=== PATIENT | male | born 1990 | race American Indian/Alaskan Native ===

== ENCOUNTER 2016-06-11 12:29 | Emergency (ER) | payer SELFPAY ==
[2016-06-11 12:48] VITALS: BP 134/68
[2016-06-11] MEDS ORDERED: FLEXERIL PO ONE (15:11)
[2016-06-11] MEDS ORDERED: MOTRIN PO ONE (15:11)
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
== END 2016-06-11 15:41 | disposition home or self-care (01) ==
LOC: ED 12:29
DX: S16.1XXA Strain of muscle, fascia and tendon at neck level, initial encounter (principal); M62.830 Muscle spasm of back; F17.200 Nicotine dependence, unspecified, uncomplicated; F12.10 Cannabis abuse, uncomplicated; V49.59XA Passenger injured in collision with other motor vehicles in traffic accident, initial encounter; Y93.9 Activity, unspecified; Y92.9 Unspecified place or not applicable; Y99.9 Unspecified external cause status
CPT/HCPCS: 99282

== ENCOUNTER 2019-12-24 14:59 | Emergency (ER) | payer SELFPAY ==
--- NOTE | 2019-12-24 17:11 | Cat Scan Report ---
CT head/brain wo con INDICATION: headache. TECHNIQUE: Routine CT head without contrast. All CT scans at this location are performed using CT dos e reduction for ALARA by means of automated exposure control. COMPARISON: None. FINDINGS: BRAIN / INTRACRANIAL CONTENTS: No acute hemorrhage, mass effect, midline shift, or hydrocephalus. No appreciable acute large territorial or lacunar infarct. No chronic infarct or focal atrophy. Normal b rain volume and ventricular/sulcal size for age. ORBITS: No significant abnormality of visualized orbits. SINUSES / MASTOIDS: No significant abnormality of visualized sinuses and mastoid air cells. ADDITIONAL FINDINGS: None. IMPRESSION: 1. Negative head CT. Signer Name: Omar Hernandez MD Signed: 12/24/2019 5:07 PM Workstation Name: [id number]
[2019-12-25 04:10] VITALS: BP 154/86
--- NOTE | 2019-12-25 04:10 | Emergency Department Report ---
ED Headache HPI - General Chief Complaint: Headache Stated Complaint: LT SIDE HEADACHE - History of Present Illness Initial Comments: Patient is a 29-year-old -[place] male with a history of hypertension and noncompliant on his medication, and morbid obesity presents to the ED with complaint of acute onset persistent left parietal headache with elevated blood pressure for the last 6 hours. Patient states that he woke up with severe pain and suspected that his blood pressure which has not been well controlled in over 1 year was the cause of his headache. Patient states that he then decided come to the ED for evaluation and to obtain prescription for blood pressure medication that he states had been prescribed initially in the ED but he did not follow-up with any primary care physician outpatient for his blood pressure control. Patient denies chest pain, shortness of breath, dizziness, syncope, nausea, vomiting, change in vision, change in speech, upper and lower extremity weaknesses bilaterally, cough, nasal and sinus congestion or traumatic injury and nosebleed or diaphoresis. Timing/Duration: 4-6 hours, waxing and waning Quality: severe, achy, pressure Head Injury Location: global Recent Head Trauma: no recent headache/trauma Modifying Factors: improves with: other (Noncompliant with BP medications) Associated Symptoms: denies symptoms. denies: confusion, fatigue, facial pain, fever/chills, flushing, loss of consciousness, nausea/vomiting, nasal congestion, nasal drainage, numbness in legs/feet, rash, seizures, sinus infection, stiff neck, vision changes, weakness Allergies/Adverse Reactions: Allergies No Known Allergies Allergy (Verified 06/15/14 16:25) Home Medications: Ambulatory Orders Acetaminophen/Codeine [Tylenol #3] 1 tab PO Q6H PRN #12 tab 06/11/16 Ibuprofen [Motrin] 600 mg PO Q8H PRN #15 tablet 06/11/16 methOCARBAMOL [Robaxin TAB] 500 mg PO Q6H PRN #15 tablet 06/11/16 Ibuprofen [Motrin] 800 mg PO Q8HR PRN #24 tablet 12/25/19 Lisinopril/Hydrochlorothiazide [Zestoretic 20-12.5 mg] 1 tab PO QDAY #30 tab 12/25/19 ED Review of Systems ROS: Stated complaint: LT SIDE HEADACHE Other details as noted in HPI Constitutional: other (Uncontrolled blood pressure). denies: chills, fever Eyes: denies: eye pain, eye discharge, vision change ENT: denies: ear pain, throat pain Respiratory: denies: cough, shortness of breath, wheezing Cardiovascular: denies: chest pain, palpitations Endocrine: no symptoms reported Gastrointestinal: denies: abdominal pain, nausea, diarrhea Genitourinary: denies: urgency, dysuria Musculoskeletal: denies: back pain, joint swelling, arthralgia Skin: denies: rash, lesions Neurological: headache. denies: weakness, paresthesias Psychiatric: denies: anxiety, depression Hematological/Lymphatic: denies: easy bleeding, easy bruising ED Past Medical Hx - Past Medical History Previous Medical History?: Yes Hx Hypertension: Yes - Surgical History Past Surgical History?: No - Social History Smoking Status: Current Every Day Smoker Substance Use Type: Alcohol, Marijuana - Medications Home Medications: Home Medications Medication Instructions Recorded Confirmed Last Taken Type Acetaminophen/Codeine [Tylenol #3] 1 tab PO Q6H PRN #12 tab 06/11/16 Unknown Rx Ibuprofen [Motrin] 600 mg PO Q8H PRN #15 tablet 06/11/16 Unknown Rx methOCARBAMOL [Robaxin TAB] 500 mg PO Q6H PRN #15 tablet 06/11/16 Unknown Rx Ibuprofen [Motrin] 800 mg PO Q8HR PRN #24 tablet 12/25/19 Unknown Rx Lisinopril/Hydrochlorothiazide 1 tab PO QDAY #30 tab 12/25/19 Unknown Rx [Zestoretic 20-12.5 mg] ED Physical Exam - General Limitations: No Limitations General appearance: alert, in no apparent distress - Head Head exam: Present: atraumatic, normocephalic, normal inspection - Eye Eye exam: Present: normal appearance, PERRL, EOMI Pupils: Present: normal accommodation - ENT ENT exam: Present: normal exam, normal orophraynx, mucous membranes moist, TM's normal bilaterally, normal external ear exam - Neck Neck exam: Present: normal inspection, full ROM - Respiratory Respiratory exam: Present: normal lung sounds bilaterally. Absent: respiratory distress, wheezes, rales, stridor, chest wall tenderness, accessory muscle use, decreased breath sounds - Cardiovascular Cardiovascular Exam: Present: regular rate, normal rhythm, normal heart sounds. Absent: systolic murmur, diastolic murmur, rubs, gallop - GI/Abdominal GI/Abdominal exam: Present: soft, normal bowel sounds. Absent: distended, tenderness, guarding, hyperactive bowel sounds, hypoactive bowel sounds - Extremities Exam Extremities exam: Present: normal inspection, full ROM, normal capillary refill - Back Exam Back exam: Present: normal inspection, full ROM. Absent: tenderness, CVA tenderness (R), CVA tenderness (L), muscle spasm, paraspinal tenderness, vertebral tenderness - Neurological Exam Neurological exam: Present: alert, oriented X3, CN II-XII intact, normal gait, reflexes normal - Psychiatric Psychiatric exam: Present: normal affect, normal mood - Skin Skin exam: Present: warm, dry, intact, normal color. Absent: rash ED Course Vital Signs 12/24/19 12/24/19 12/25/19 15:42 18:45 04:09 Temperature 98.0 F 98.2 F 98.2 F Pulse Rate 76 71 61 Respiratory 20 18 18 Rate Blood Pressure 160/104 155/96 Blood Pressure 154/86 [Left] O2 Sat by Pulse 96 97 98 Oximetry ED Medical Decision Making - Radiology Data Radiology results: report reviewed, image reviewed Findings [facility] [address] [place] [address] Cat Scan Report Signed Patient: HERMILO PANG MR#: [id number] : 1990 Acct:[id number] Age/Sex: 29 / M ADM Date: 12/24/19 Loc: ED Attending Dr: Ordering Physician: BRANDEE RODRIGUEZ Date of Service: 12/24/19 Procedure(s): CT head/brain wo con Accession Number(s): [id number] cc: BRANDEE RODRIGUEZ CT head/brain wo con INDICATION: headache. TECHNIQUE: Routine CT head without contrast. All CT scans at this location are performed using CT dose reduction for ALARA by means of automated exposure control. COMPARISON: None. FINDINGS: BRAIN / INTRACRANIAL CONTENTS: No acute hemorrhage, mass effect, midline shift, or hydrocephalus. No appreciable acute large territorial or lacunar infarct. No chronic infarct or focal atrophy. Normal brain volume and ventricular/sulcal size for age. ORBITS: No significant abnormality of visualized orbits. SINUSES / MASTOIDS: No significant abnormality of visualized sinuses and mastoid air cells. ADDITIONAL FINDINGS: None. IMPRESSION: 1. Negative head CT. Signer Name: Omar Hernandez MD Signed: 12/24/2019 5:07 PM Workstation Name: [id number] Transcribed By: SUMMER Dictated By: Omar Hernandez MD Electronically Authenticated By: Omar Hernandez MD Signed Date/Time: 12/24/191706 DD/ 05 TD/TT: - Medical Decision Making This is a 29-year-old -[place] male with a history of hypertension and noncompliant on his medication, and morbid obesity presents to the ED with complaint of acute onset persistent left parietal headache with elevated blood pressure for the last 6 hours. Patient states that he woke up with severe pain and suspected that his blood pressure which has not been well controlled in over 1 year was the cause of his headache. Patient states that he then decided come to the ED for evaluation and to obtain prescription for blood pressure medication that he states had been prescribed initially in the ED but he did not follow-up with any primary care physician outpatient for his blood pressure control. In the ED, patient is alert and oriented x3 and is not in distress. Patient is however hypertensive in triage. The head CT scan without contrast shows no acute intracranial abnormalities or hemorrhage. On reevaluation, patient's headache resolved after being triaged. Patient stated that he would like a refill on his blood pressure medications. Patient was discharged home on refill of lisinopril HCTZ 20-12.5 mg daily and a prescription of ibuprofen for pain. Patient was then discharged home on medications and advised to follow-up with his primary care physician at [facility] in 7 to 10 days for reevaluation. Patient was advised to return to the ED immediately if symptoms get worse. - Differential Diagnosis Tension headache; cluster headache; migraine headache; hypertension Critical care attestation.: If time is entered above; I have spent that time in minutes in the direct care of this critically ill patient, excluding procedure time. ED Disposition Clinical Impression: Uncontrolled hypertension, stage 1 Tension type headache Qualifiers: Headache chronicity pattern: acute headache Intractability: not intractable Qualified Code(s): G44.209 - Tension-type headache, unspecified, not intractable Disposition: DC-01 TO HOME OR SELFCARE Is pt being admited?: No Does the pt Need Aspirin: No Condition: Stable Instructions: Acute Headache (ED), Hypertension (ED) Additional Instructions: Take medications as needed for headache, take the blood pressure medication as advised and follow-up with the [facility] in 7 to 10 days for reevaluation. Return to the ED immediately if symptoms get worse. Prescriptions: Ibuprofen [Motrin] 800 mg PO Q8HR PRN #24 tablet PRN Reason: Pain , Severe (7-10) Lisinopril/Hydrochlorothiazide [Zestoretic 20-12.5 mg] 1 tab PO QDAY #30 tab Referrals: [facility] [Provider Group] - 7-10 days Time of Disposition: 05:03 Print Language: SLOVENIAN
== END 2019-12-25 05:40 | disposition home or self-care (01) ==
LOC: ED 14:59
DX: I10 Essential (primary) hypertension (principal); G44.209 Tension-type headache, unspecified, not intractable; F17.200 Nicotine dependence, unspecified, uncomplicated; Z79.899 Other long term (current) drug therapy
CPT/HCPCS: 70450; 99283